=== PATIENT | female | born 1990 | race African-American/Black ===

== ENCOUNTER 2019-11-07 10:58 | Inpatient (IN) | payer MEDICAID, OTHER ==
[~2019-11-07] VITALS: Ht 162.6 cm; Wt 52.4 kg
[2019-11-07] MEDS ORDERED: SODIUM CHLORIDE 0.9% 1,000 ML IV ONE ×2 (11:10)
[2019-11-07] MEDS ORDERED: InsuLIN REG 1unit/0.01ml Soln (100units/ml) IV ONE ×2 (11:15→16:30)
[2019-11-07 12:02] LABS: Basophils # (auto) 0.2 10 ^3/uL (0-0.2); Basophils % (auto) 0.8 % (0.0-2.0); Eosinophils # (auto) 0 10 ^3/uL (0-0.8); Eosinophils % (auto) 0.2 % (0.0-7.0); Hemoglobin 11.2 g/dL (12.2-16.2); Lymphocytes # (auto) 1.2 10 ^3/uL (0.4-5.4); Lymphocytes % (auto) 5.9 % (10.0-50.0); Mean Corpuscular Hemoglobin 26.9 pg (28.0-32.0); Mean Corpuscular Volume 84.2 fL (80.0-100.0); Monocytes # (auto) 0.2 10 ^3/uL (0-1.3); Neutrophils # (auto) 19.5 10 ^3/uL (1.6-8.6); Neutrophils % (auto) 92.1 % (37.0-80.0); Platelet Count (auto) 591 10^3/uL (140-450); Red Blood Cells 4.16 10^6/uL (4.0-5.20); Red Cell Distribution Width 14.1 % (11.8-14.3); White Blood Cell 21.2 10^3/uL (4.4-10.8)
[2019-11-07 12:18] LABS: Albumin 3.6 g/dL (3.4-5.0); Calcium 9.5 mg/dL (8.5-10.1); Potassium 3.1 mmol/L (3.5-5.1)
[2019-11-07 12:21] LABS: BUN/Creatinine Ratio 14.9; Bilirubin, Total 0.4 mg/dL (0.2-1.0); Total Protein 10.6 g/dL (6.4-8.2)
[2019-11-07] MEDS ORDERED: NITROGLYCERIN 0.4 MG SL TAB SL PRN (16:15)
[2019-11-07] MEDS ORDERED: PROCHLORPERAZINE EDISYLATE 5 MG/ML 2ML VIAL IV PRN (16:15)
[2019-11-07] MEDS: HYDROmorphone HCL 2 MG/ML VL IV PRN (20:36)
[2019-11-07] MEDS: SODIUM CHLORIDE 0.9% 1,000 ML IV SCH (20:37)
[2019-11-07] MEDS: CLINDAMYCIN 300MG IV 50 ML IV SCH (21:59)
[2019-11-07] MEDS ORDERED: DEXTROSE (50%) 50ML SYRG IV PRN (22:45)
[2019-11-07] MEDS: InsuLIN REG 1unit/0.01ml Soln (100units/ml) SC SCH (23:00)
[2019-11-07] MEDS: ACCU-CHEK COMFORT CURVE STRIP VI SCH (23:01)
[2019-11-07 23:34] VITALS: BP 125/70
[2019-11-08 00:33] LABS: Urine Bacteria MANY /hpf (None Seen); Urine Blood 3+ /uL (Negative); Urine Hyaline Cast MANY /lpf (0 - 2); Urine Mucus FEW (None Seen); Urine Specific Gravity 1.013 (1.001-1.035); Urine WBC 1406 /hpf (0 - 5); Urine WBC Clumps PRESENT /hpf (None Seen)
[2019-11-08] MEDS: SODIUM CHLORIDE 0.9% 1,000 ML IV SCH ×4 (00:42→17:28)
[2019-11-08 01:00] VITALS: BP 125/70
[2019-11-08] MEDS: HYDROmorphone HCL 2 MG/ML VL IV PRN ×5 (01:20→20:47)
[2019-11-08 05:24] VITALS: BP 104/65
[2019-11-08] MEDS: CLINDAMYCIN 300MG IV 50 ML IV SCH (05:54)
[2019-11-08] MEDS: ACETAMINOPHEN 325 MG TAB PO PRN ×3 (06:21→21:41)
[2019-11-08] MEDS: ACCU-CHEK COMFORT CURVE STRIP VI SCH ×4 (06:21→22:21)
[2019-11-08] MEDS: InsuLIN REG 1unit/0.01ml Soln (100units/ml) SC SCH ×4 (06:22→22:22)
[2019-11-08 06:32] LABS: Hematocrit 30.4 % (36.0-46.0); Hemoglobin 9.8 g/dL (12.2-16.2); Mean Corpuscular Hemoglobin 27.2 pg (28.0-32.0); Mean Corpuscular Hgb Conc. 32.4 g/dL (32.0-36.0); Mean Corpuscular Volume 83.9 fL (80.0-100.0); Platelet Count (auto) 435 10^3/uL (140-450); Red Blood Cells 3.62 10^6/uL (4.0-5.20); White Blood Cell 21.2 10^3/uL (4.4-10.8)
[2019-11-08 06:44] LABS: Basophils % (manual) 0 (0.0-2.0); Blast Cells 0; Eosinophils % (manual) 0 (0-7); Myelocytes % 0; Promyelocytes % 0; Reactive Lymphocytes 0
[2019-11-08 06:45] LABS: Albumin 2.9 g/dL (3.4-5.0); Calcium 8.5 mg/dL (8.5-10.1); Potassium 4.1 mmol/L (3.5-5.1)
[2019-11-08 06:49] LABS: BUN/Creatinine Ratio 14.4; Bilirubin, Total 0.6 mg/dL (0.2-1.0); Total Protein 8.5 g/dL (6.4-8.2)
[2019-11-08 08:03] LABS: Band Neutrophils % (manual) 7; Lymphocytes % (manual) 7 (10.0-50.0); Metamyelocytes % 1; Monocytes % (manual) 3 (0-12)
[2019-11-08 09:26] VITALS: BP 97/52
[2019-11-08] MEDS: PANTOPRAZOLE 40 MG/10 ML VIAL INJ IV SCH (09:55)
[2019-11-08] MEDS ORDERED: cefTRIAXone 1GM/50ML D5W 50 ML IV ONE (10:15)
[2019-11-08 12:45] VITALS: BP 119/68
[2019-11-08 16:30] VITALS: BP 114/70
[2019-11-08 22:20] VITALS: BP 98/67
[2019-11-09] MEDS: HYDROmorphone HCL 2 MG/ML VL IV PRN ×4 (00:47→20:03)
[2019-11-09] MEDS: SODIUM CHLORIDE 0.9% 1,000 ML IV SCH ×4 (04:37→20:50)
[2019-11-09 05:23] VITALS: BP 95/73
[2019-11-09 06:30] VITALS: BP 105/70
[2019-11-09] MEDS: ACCU-CHEK COMFORT CURVE STRIP VI SCH ×4 (06:36→21:31)
[2019-11-09] MEDS: InsuLIN REG 1unit/0.01ml Soln (100units/ml) SC SCH ×4 (06:41→21:36)
[2019-11-09 07:43] LABS: Basophils # (auto) 0.1 10 ^3/uL (0-0.2); Basophils % (auto) 0.5 % (0.0-2.0); Eosinophils # (auto) 0.1 10 ^3/uL (0-0.8); Eosinophils % (auto) 0.4 % (0.0-7.0); Hematocrit 27.2 % (36.0-46.0); Hemoglobin 8.5 g/dL (12.2-16.2); Lymphocytes # (auto) 0.8 10 ^3/uL (0.4-5.4); Lymphocytes % (auto) 4.5 % (10.0-50.0); Mean Corpuscular Hemoglobin 27.1 pg (28.0-32.0); Mean Corpuscular Hgb Conc. 31.3 g/dL (32.0-36.0); Mean Corpuscular Volume 86.6 fL (80.0-100.0); Monocytes # (auto) 0.4 10 ^3/uL (0-1.3); Monocytes % (auto) 2.3 % (0.0-12.0); Neutrophils # (auto) 15.5 10 ^3/uL (1.6-8.6); Neutrophils % (auto) 92.3 % (37.0-80.0); Platelet Count (auto) 344 10^3/uL (140-450); Red Blood Cells 3.14 10^6/uL (4.0-5.20); Red Cell Distribution Width 14.5 % (11.8-14.3); White Blood Cell 16.8 10^3/uL (4.4-10.8)
[2019-11-09 08:05] LABS: BUN/Creatinine Ratio 13.3; Calcium 7.8 mg/dL (8.5-10.1); Potassium 4.8 mmol/L (3.5-5.1)
[2019-11-09 09:00] VITALS: BP 109/71
[2019-11-09] MEDS: cefTRIAXone 1GM/50ML D5W 50 ML IV SCH (09:44)
[2019-11-09] MEDS: PANTOPRAZOLE 40 MG/10 ML VIAL INJ IV SCH (09:44)
[2019-11-09 13:00] VITALS: BP 123/79
[2019-11-09] MEDS ORDERED: DEXTROSE (50%) 50ML SYRG IV PRN (16:45)
[2019-11-09 17:00] VITALS: BP 95/68
[2019-11-09 18:00] VITALS: BP 103/72
[2019-11-09] MEDS: INSULIN LANTUS (GLARGINE) 1 /0.01ml (100units/ml) SC SCH (21:37)
[2019-11-10] MEDS: HYDROmorphone HCL 2 MG/ML VL IV PRN ×5 (00:02→22:38)
[2019-11-10] MEDS: SODIUM CHLORIDE 0.9% 1,000 ML IV SCH ×4 (00:03→23:57)
[2019-11-10] MEDS: ACETAMINOPHEN 325 MG TAB PO PRN (04:13)
[2019-11-10 05:00] VITALS: BP 128/76
[2019-11-10 06:05] LABS: Basophils # (auto) 0.1 10 ^3/uL (0-0.2); Eosinophils # (auto) 0.1 10 ^3/uL (0-0.8); Hematocrit 22.3 % (36.0-46.0); Hemoglobin 7.2 g/dL (12.2-16.2); Mean Corpuscular Hemoglobin 27.3 pg (28.0-32.0); Monocytes # (auto) 0.3 10 ^3/uL (0-1.3); Monocytes % (auto) 2.9 % (0.0-12.0); White Blood Cell 11.7 10^3/uL (4.4-10.8)
[2019-11-10 06:07] LABS: Basophils % (auto) 0.7 % (0.0-2.0); Eosinophils % (auto) 1.3 % (0.0-7.0); Lymphocytes # (auto) 1.1 10 ^3/uL (0.4-5.4); Lymphocytes % (auto) 9.1 % (10.0-50.0); Mean Corpuscular Hgb Conc. 32.5 g/dL (32.0-36.0); Mean Corpuscular Volume 83.8 fL (80.0-100.0); Platelet Count (auto) 304 10^3/uL (140-450); Red Blood Cells 2.66 10^6/uL (4.0-5.20); Red Cell Distribution Width 14.5 % (11.8-14.3)
[2019-11-10] MEDS: ACCU-CHEK COMFORT CURVE STRIP VI SCH ×4 (06:26→21:37)
[2019-11-10] MEDS: InsuLIN REG 1unit/0.01ml Soln (100units/ml) SC SCH ×4 (06:29→22:08)
[2019-11-10 06:31] LABS: Albumin 1.8 g/dL (3.4-5.0); Potassium 3.9 mmol/L (3.5-5.1)
[2019-11-10 06:39] LABS: BUN/Creatinine Ratio 11.8; Bilirubin, Total 0.4 mg/dL (0.2-1.0); Total Protein 6.6 g/dL (6.4-8.2)
[2019-11-10] MEDS: cefTRIAXone 1GM/50ML D5W 50 ML IV SCH (08:37)
[2019-11-10 09:00] VITALS: BP 107/67
[2019-11-10] MEDS: PANTOPRAZOLE 40 MG/10 ML VIAL INJ IV SCH (10:39)
[2019-11-10 13:00] VITALS: BP 112/73
[2019-11-10] MEDS: CEFEPIME 1 GM in SODIUM CHL 0.9% 50 ML IV ONE ×2 (13:54→15:37)
[2019-11-10 17:02] VITALS: BP 130/76
[2019-11-10 22:00] VITALS: BP 126/81
[2019-11-10] MEDS: CEFEPIME 1 GM in SODIUM CHL 0.9% 50 ML IV SCH (22:05)
[2019-11-10] MEDS: INSULIN LANTUS (GLARGINE) 1 /0.01ml (100units/ml) SC SCH (22:06)
[2019-11-11] MEDS: HYDROmorphone HCL 2 MG/ML VL IV PRN ×4 (02:59→22:09)
[2019-11-11 05:00] VITALS: BP 123/84
[2019-11-11] MEDS: CEFEPIME 1 GM in SODIUM CHL 0.9% 50 ML IV SCH ×3 (05:32→22:09)
[2019-11-11] MEDS: SODIUM CHLORIDE 0.9% 1,000 ML IV SCH ×3 (05:32→20:15)
[2019-11-11] MEDS: ACCU-CHEK COMFORT CURVE STRIP VI SCH ×4 (06:21→22:18)
[2019-11-11] MEDS: InsuLIN REG 1unit/0.01ml Soln (100units/ml) SC SCH ×4 (06:25→22:21)
[2019-11-11 07:11] LABS: Basophils # (auto) 0.1 10 ^3/uL (0-0.2); Eosinophils # (auto) 0.2 10 ^3/uL (0-0.8); Monocytes # (auto) 0.7 10 ^3/uL (0-1.3); Monocytes % (auto) 7.2 % (0.0-12.0); Nucleated Red Blood Cells % 0.1 %
[2019-11-11 07:14] LABS: Basophils % (auto) 0.9 % (0.0-2.0); Eosinophils % (auto) 2.2 % (0.0-7.0); Hematocrit 21.8 % (36.0-46.0); Hemoglobin 7.1 g/dL (12.2-16.2); Lymphocytes # (auto) 2.1 10 ^3/uL (0.4-5.4); Lymphocytes % (auto) 22.4 % (10.0-50.0); Mean Corpuscular Hemoglobin 27.5 pg (28.0-32.0); Mean Corpuscular Hgb Conc. 32.7 g/dL (32.0-36.0); Mean Corpuscular Volume 84.2 fL (80.0-100.0); Neutrophils # (auto) 6.2 10 ^3/uL (1.6-8.6); Neutrophils % (auto) 67.3 % (37.0-80.0); Platelet Count (auto) 294 10^3/uL (140-450); Red Blood Cells 2.59 10^6/uL (4.0-5.20); Red Cell Distribution Width 14.8 % (11.8-14.3); White Blood Cell 9.2 10^3/uL (4.4-10.8)
[2019-11-11 07:36] LABS: Potassium 3.6 mmol/L (3.5-5.1)
[2019-11-11 07:54] LABS: Albumin 1.9 g/dL (3.4-5.0); BUN/Creatinine Ratio 9.3; Bilirubin, Total 0.8 mg/dL (0.2-1.0); Calcium 7.9 mg/dL (8.5-10.1); Total Protein 6.8 g/dL (6.4-8.2)
[2019-11-11 08:15] VITALS: BP 134/86
[2019-11-11] MEDS: PANTOPRAZOLE 40 MG/10 ML VIAL INJ IV SCH (09:36)
[2019-11-11 11:26] LABS: Hepatitis B Surface Antibody Positive
[2019-11-11 11:50] LABS: Hepatitis A Total Antibody Positive
[2019-11-11 12:48] VITALS: BP 129/80
[2019-11-11 13:18] LABS: Hepatitis B Core Total AB Negative; Hepatitis C Antibody Negative (Negative)
[2019-11-11 13:19] LABS: Hepatitis B Surface Antigen Negative (Negative)
[2019-11-11 16:55] VITALS: BP 129/78
[2019-11-11 22:11] VITALS: BP 134/92
[2019-11-11] MEDS: INSULIN LANTUS (GLARGINE) 1 /0.01ml (100units/ml) SC SCH (22:22)
[2019-11-12] MEDS: HYDROmorphone HCL 2 MG/ML VL IV PRN ×4 (02:01→22:30)
[2019-11-12 05:00] VITALS: BP 124/75
[2019-11-12] MEDS: CEFEPIME 1 GM in SODIUM CHL 0.9% 50 ML IV SCH ×3 (05:14→22:19)
[2019-11-12] MEDS: SODIUM CHLORIDE 0.9% 1,000 ML IV SCH ×3 (05:14→17:40)
[2019-11-12] MEDS: ACETAMINOPHEN 325 MG TAB PO PRN (05:15)
[2019-11-12] MEDS: ACCU-CHEK COMFORT CURVE STRIP VI SCH ×4 (06:15→22:00)
[2019-11-12] MEDS: InsuLIN REG 1unit/0.01ml Soln (100units/ml) SC SCH ×4 (06:19→22:00)
[2019-11-12 07:14] LABS: Basophils # (auto) 0.1 10 ^3/uL (0-0.2); Hematocrit 23.9 % (36.0-46.0); Hemoglobin 7.8 g/dL (12.2-16.2); Lymphocytes # (auto) 2.1 10 ^3/uL (0.4-5.4); Monocytes # (auto) 1.1 10 ^3/uL (0-1.3); Monocytes % (auto) 11.1 % (0.0-12.0)
[2019-11-12 07:16] LABS: Basophils % (auto) 1.2 % (0.0-2.0); Eosinophils # (auto) 0.2 10 ^3/uL (0-0.8); Eosinophils % (auto) 2.4 % (0.0-7.0); Lymphocytes % (auto) 21.5 % (10.0-50.0); Mean Corpuscular Hemoglobin 27.4 pg (28.0-32.0); Mean Corpuscular Hgb Conc. 32.9 g/dL (32.0-36.0); Mean Corpuscular Volume 83.2 fL (80.0-100.0); Neutrophils # (auto) 6.1 10 ^3/uL (1.6-8.6); Neutrophils % (auto) 63.8 % (37.0-80.0); Platelet Count (auto) 300 10^3/uL (140-450); Red Blood Cells 2.87 10^6/uL (4.0-5.20); Red Cell Distribution Width 14.6 % (11.8-14.3); White Blood Cell 9.6 10^3/uL (4.4-10.8)
[2019-11-12 07:29] LABS: BUN/Creatinine Ratio 10.1; Calcium 7.9 mg/dL (8.5-10.1); Potassium 3.7 mmol/L (3.5-5.1)
[2019-11-12 08:00] VITALS: BP 124/79
[2019-11-12 09:00] VITALS: BP 124/79
[2019-11-12] MEDS: PANTOPRAZOLE 40 MG/10 ML VIAL INJ IV SCH (09:14)
[2019-11-12 12:55] VITALS: BP 131/77
[2019-11-12 17:00] VITALS: BP 125/75
[2019-11-12] MEDS: HYDROcodone-ACET 5/325MG TAB PO PRN (19:00)
[2019-11-12 21:55] VITALS: BP_SYST 111; BP_SYST 123; BP_DIAS 77; BP_DIAS 82
[2019-11-12] MEDS: INSULIN LANTUS (GLARGINE) 1 /0.01ml (100units/ml) SC SCH (22:00)
[2019-11-13] MEDS: HYDROmorphone HCL 2 MG/ML VL IV PRN ×2 (03:59→08:54)
[2019-11-13 05:00] VITALS: BP 124/80
[2019-11-13 06:53] LABS: Hematocrit 22.2 % (36.0-46.0)
[2019-11-13] MEDS: CEFEPIME 1 GM in SODIUM CHL 0.9% 50 ML IV SCH ×2 (06:53→14:00)
[2019-11-13 06:58] LABS: Hemoglobin 7.4 g/dL (12.2-16.2); Mean Corpuscular Hemoglobin 27.6 pg (28.0-32.0); Mean Corpuscular Hgb Conc. 33.3 g/dL (32.0-36.0); Mean Corpuscular Volume 82.7 fL (80.0-100.0); Platelet Count (auto) 357 10^3/uL (140-450); Red Blood Cells 2.68 10^6/uL (4.0-5.20); Red Cell Distribution Width 14.7 % (11.8-14.3)
[2019-11-13] MEDS: ACCU-CHEK COMFORT CURVE STRIP VI SCH ×2 (06:58→11:58)
[2019-11-13] MEDS: InsuLIN REG 1unit/0.01ml Soln (100units/ml) SC SCH ×2 (06:58→11:30)
[2019-11-13 07:10] LABS: BUN/Creatinine Ratio 10.1; Calcium 7.9 mg/dL (8.5-10.1); Potassium 3.4 mmol/L (3.5-5.1)
[2019-11-13 07:18] LABS: Band Neutrophils % (manual) 0; Basophils % (manual) 0 (0.0-2.0); Blast Cells 0; Metamyelocytes % 0; Myelocytes % 0; Promyelocytes % 0; Reactive Lymphocytes 0
[2019-11-13 08:00] VITALS: BP 95/70
[2019-11-13] MEDS: PANTOPRAZOLE 40 MG/10 ML VIAL INJ IV SCH (08:53)
[2019-11-13 09:00] VITALS: BP 130/74
[2019-11-13 09:07] LABS: Eosinophils % (manual) 4 (0-7); Lymphocytes % (manual) 24 (10.0-50.0); Monocytes % (manual) 6 (0-12)
[2019-11-13] MEDS: HYDROcodone-ACET 5/325MG TAB PO PRN (11:59)
[2019-11-13] MEDS ORDERED: CEPH-37 PO ×2 (12:21→12:30)
[2019-11-13 13:00] VITALS: BP 107/81
[2019-11-13 14:00] VITALS: BP 107/81
== END 2019-11-13 15:55 | disposition home or self-care (01) | DRG 720 ==
LOC: ER 10:58 → TELE 10:59 → TELE-WESTW 21:14
PROVIDERS: ATTEND Internal Medicine Pulmonary Disease
DX: A41.9 Sepsis, unspecified organism (principal); N39.0 Urinary tract infection, site not specified; E10.65 Type 1 diabetes mellitus with hyperglycemia; K52.9 Noninfective gastroenteritis and colitis, unspecified; E87.8 Other disorders of electrolyte and fluid balance, not elsewhere classified; E87.1 Hypo-osmolality and hyponatremia; E87.6 Hypokalemia; E86.0 Dehydration; Z79.4 Long term (current) use of insulin; N18.9 Chronic kidney disease, unspecified; E10.22 Type 1 diabetes mellitus with diabetic chronic kidney disease; E10.21 Type 1 diabetes mellitus with diabetic nephropathy; N12 Tubulo-interstitial nephritis, not specified as acute or chronic; B96.20 Unspecified Escherichia coli [E. coli] as the cause of diseases classified elsewhere; N17.0 Acute kidney failure with tubular necrosis; R16.0 Hepatomegaly, not elsewhere classified; Z88.8 Allergy status to other drugs, medicaments and biological substances
CPT/HCPCS: 36415; 36600; 71045; 74176; 76775; 80048; 80053; 81001; 82150; 82805; 82962; 83036; 83690; 83735; 84702; 85007; 85025; 85027; 86704; 86706; 86708; 86803; 87040; 87081; 87086; 87088; 87186; 87340; 96361; 96374; 96375; C9113; G0378; J0696; J1815; J3490